=== PATIENT | male | born 1960 | race Caucasian/White ===

== ENCOUNTER 2018-11-14 18:36 | Emergency (ER) | payer MEDICAID ==
[~2018-11-14] VITALS: Ht 172.7 cm; Wt 86.4 kg
[~2018-11-14 18:36] MED LIST: NO HOME MEDS
[2018-11-14 18:39] VITALS: BP 103/75
== END 2018-11-14 21:26 | disposition left against medical advice (07) ==
LOC: ER 18:37
DX: M79.671 Pain in right foot (principal); Z53.21 Procedure and treatment not carried out due to patient leaving prior to being seen by health care provider

== ENCOUNTER 2018-11-18 17:58 | Emergency (ER) | payer MEDICAID ==
[~2018-11-18] VITALS: Ht 170.2 cm; Wt 86.4 kg
[2018-11-18 18:15] VITALS: BP 130/90
[2018-11-18] MEDS ORDERED: dexamethasone 0.5 mg/5ml unit-dose oral solution PO STA (18:43)
[2018-11-18] MEDS ORDERED: INDO50CA14 PO (18:45)
[2018-11-18] MEDS ORDERED: ketorolac trometh inj. 60 MG/2 ML VIAL IM ONE (18:45)
[2018-11-18] MEDS ORDERED: dexamethasone sod phosphate 10mg/ml inj PO STA (19:02)
== END 2018-11-18 19:10 | disposition home or self-care (01) ==
LOC: ER 17:59
DX: M10.9 Gout, unspecified (principal); Z98.890 Other specified postprocedural states; Z79.899 Other long term (current) drug therapy
CPT/HCPCS: 96372; 99283; J1100; J1885; J8540